=== PATIENT | male | born 1960 | race Caucasian/White ===

== ENCOUNTER 2017-10-10 23:55 | Emergency (ER) | payer OTHER ==
[~2017-10-10] VITALS: Ht 182.9 cm; Wt 83.9 kg
[2017-10-11 05:18] VITALS: BP 160/109
[2017-10-11] MEDS ORDERED: HYDROcodone-ACET 10/325MG TAB PO ONE (06:00)
[2017-10-11] MEDS ORDERED: ceFAZolin 1GM/100ML 50 ML IV ONE (07:22)
== END 2017-10-11 06:28 | disposition home or self-care (01) ==
LOC: ER 10-11
DX: M54.16 Radiculopathy, lumbar region (principal); G89.29 Other chronic pain; M54.5 Low back pain; F17.210 Nicotine dependence, cigarettes, uncomplicated
CPT/HCPCS: 99283; J0690